=== PATIENT | female | born 1995 | race Caucasian/White ===

== ENCOUNTER 2017-01-08 21:12 | Emergency (ER) | payer OTHER ==
[2017-01-08 21:47] VITALS: RESP 18; TEMP 98.6
[2017-01-08] MEDS ORDERED: NORMAL SALINE 10 ML SYRINGE FLUSH IVP PRN (21:55)
[2017-01-08 22:16] LABS: BASOPHILS # (AUTO) 0.04 10*3/UL; BASOPHILS % (AUTO) 0.4 % (0-1); EOSINOPHILS # (AUTO) 0.13 10*3/UL; EOSINOPHILS % (AUTO) 1.4 % (0-8); HEMATOCRIT 41.4 % (37.0-47.0); HEMOGLOBIN 13.8 g/dL (12.0-16.0); LYMPHOCYTES # (AUTO) 2.91 10*3/uL; MEAN CORPUSCULAR HEMOGLOBIN 29.6 PG (27-31); MEAN CORPUSCULAR HGB CONC 33.3 g/dL (33-37); MEAN CORPUSCULAR VOLUME 88.8 FL (81-99); MEAN PLATELET VOLUME 9.1 FL (7.4-12.2); MONOCYTES # (AUTO) 0.68 10*3/UL (0.3-0.8); MONOCYTES % (AUTO) 7.4 % (5-15); NEUTROPHILS # (AUTO) 5.45 10*3/UL; NEUTROPHILS % (AUTO) 59.1 % (50-80); RED BLOOD COUNT 4.66 10^6/uL (4.20-5.40)
[2017-01-08 22:19] LABS: PLATELET MORPHOLOGY COMMENT NORMAL MORPHOLOGY (NORM); RBC MORPHOLOGY COMMENT NORMAL MORPHOLOGY (NORM); WBC MORPHOLOGY COMMENT NORMAL MORPHOLOGY (NORM)
[2017-01-08 22:26] LABS: BLOOD UREA NITROGEN 10 mg/dL (7-22); BUN/CREATININE RATIO 14.28 (6-20); CALCIUM 9.1 mg/dL (8.7-10.7); EST GLOMERULAR FILTRATION > 60 (>60 ml/min/1.73m(2)); SERUM ALBUMIN 4.9 g/dL (3.5-4.8)
[2017-01-08] MEDS ORDERED: AZITHROMYCIN 250 MG TABLET PO SCH (23:30)
--- NOTE | 2017-01-08 23:52 | PDOC ---
Upper Respiratory HPI - General Chief Complaint: Cough / URI Stated Complaint: COUGHING UP BLOOD X 1 WEEK Date Seen by Provider: 01/08/17 Time Seen by Provider: 21:45 Source: POSITIVE: Patient Exam Limitations: POSITIVE: No limitations Nurse's Notes Reviewed & Considered: Yes - History of Present Illness Initial Comments: The patient is a 21-year-old female. She states that for the past week she has had a cough with some possible hemoptysis. No chest pain. No known fevers. She smokes 2-3 cigarettes per day. Mild sore throat. No rashes or skin changes or any other symptoms. Timing: REPORTS: Constant Duration: <1 week (Approximately one week) Severity: Mild Quality: REPORTS: Other (No pain anywhere) Context: DENIES: Recent Foreign Travel, Insect Bite, Tick Bite, Multiple Pt's w / Same Sx, Recent Chemotherapy, Other Modifying Factors: improves with: Coughing Associated Symptoms: REPORTS: Sore Throat, Other (Possible hemoptysis). DENIES : Fever, Chills, Sweating, Earache, Runny Nose, Sinus Pain, Sinus Drainage, Hoarseness, Allergy, Hay Fever, Chest Pain, Cough, Bloody Cough, Productive Cough, Shortness of Breath, Hurts to Breathe, Headache Similar Symptoms Previously: No Recently seen/treated/hospitalized: No Any Prior Injuries Related to Current Complaint?: No - Patient Home Medications Home Medications: Home Medications Azithromycin [Zithromax] 500 mg PO DAILY #4 tab 01/08/17 - Patient Allergies Allergies/Adverse Reactions: Allergies Allergy/AdvReac Type Severity Reaction Status Date / Time coconut oil Allergy HIVES Verified 01/08/17 21:26 Past Medical History - heen HEENT History: Denies History Cardiovascular History: Denies History Respiratory History: Denies History Gastrointestinal History: Denies History Genitourinary History: Denies History Endocrine History: Hyperthyroidism, Other (please comment) Additional Endocrine History: TAKEN OFF MEDS AND REPORTED CLEAR Musculoskeletal History: Denies History Prosthesis or Implant: No Neurological History: Denies History Blood Disorders: Denies History Psychiatric History: Denies History History of Sexually Transmitted Diseases: No Female Reproductive History: Denies History Obstetrical History: Denies History Cancer History: Denies History In Past Year Been Physically Harmed or Verbally Threatened: No History of MDRO: No History of Other Communicable Diseases: No Tobacco Use: Current Every Day Smoker Alcohol Use: Rarely Substance Use Type: None Previous Surgical History: Yes Type / Date of Surgery: WISDOM TEETH, APPENDECTOMY Anesthesia Reactions: No Malignant Hyperthermia: No Significant Family History: No pertinent family hx, Heart disease, Cancer, COPD , Diabetes, Hypertension Additional Family History: Father's - COPD, Diabetes, Hypertension, Cancer. Mother's - Asthma, Empysema, Heart Murmur Past Medical History Reviewed: Reviewed - No Changes ROS - Limitations ROS Limitations: No Limitations Constitution: REPORTS: Denies Symptoms Cardiovascular: REPORTS: Denies Cardiac Symptoms Respiratory: REPORTS: Cough Productive (Possible hemoptysis). DENIES: Hurts To Breathe, Shortness Of Breath, Wheezing Neurological: REPORTS: Denies Neuro Symptoms Gastrointestinal: REPORTS: Denies GI Symptoms Endocrine: REPORTS: Denies Symptoms Musculoskeletal: REPORTS: Denies MS Symptoms Genitourinary: REPORTS: Denies Symptoms Eyes: REPORTS: Denies Symptoms ENT: REPORTS: Sore Throat (Mild). DENIES: Earache, Ear Discharge, Hearing Loss , Vertigo, Nose Pain, Nose Bleed, Congestion, Nasal Drainage, Sinus Problem, Trouble Swallowing, Tongue Swelling, Throat Swelling, Lip Swelling, Dental Pain Skin: REPORTS: Denies Skin Symptoms Lympathic: REPORTS: Denies Lympathic Symptoms Immunologic: POSITIVE: Denies Symptoms Psychiatric: POSITIVE: Denies Psych Symptoms Upper Respiratory/Fever Exam - General Appearance General Appearance: REPORTS: Alert, Cooperative, No Acute Distress, No Evidence of Trauma - HEENT HEENT: POSITIVE: Head Inspection Nml, Eyes Inspection Nml, Ears Inspection Nml, Nose Inspection Nml, Oral/Dental Inspect. Nml, PERRL, EOMI, Pharyngeal Erythema (Mild pharyngeal erythema) - Neck Neck: REPORTS: Normal Inspection, Supple - Respiratory Respiratory: REPORTS: No Respiratory Distress, Breath Sounds Normal, No Pleuritic Chest Pain, Speaks Full Sentences, No Pain on Inspiration - Abdomen Abdomen: Soft: (All Quadrants), Normal Bowel Sounds: (All Quadrants), Denies Tenderness: (All Quadrants), No Splenomegaly: (All Quadrants), No Hepatomegaly: (All Quadrants), No Guarding: (All Quadrants), No Rebound: (All Quadrants), No Palpable Pulse: (All Quadrants), No [place] Mass: (All Quadrants), No Distention: (All Quadrants), No Rigidity: (All Quadrants) - Cardiovascular Cardiovascular: REPORTS: Regular Rate and Rhythm, Heart Sounds Normal, Equal Pulses, Strong Pulses, No Murmur, No Gallop, No Friction Rub, No JVD Peripheral Pulses: Radial (R): 2+, Radial (L): 2+ - Skin Skin: REPORTS: Intact, Normal For Race, Warm, Dry, No Rash - Extremities Extremity: Non-Tender: (All Extremities), Normal ROM: (All Extremities), Normal Inspection: (All Extremities) - Neurological / Psychological Neurological: POSITIVE: Oriented X3, proofreader Normal As Tested, Motor Normal, Sensation Normal, 5, 6 Upper Resp/Fever Progress - Results Reviewed by me Xrays/CTs/US Reviewed by me: Yes Discussed with Radiologist: No Radiology Findings: Chest x-ray normal Lab Results Reviewed: Yes Lab Results:: Laboratory Results 01/08/17 Range/Units 22:14 WBC 9.22 (4.8-10.8) 10^3/uL RBC 4.66 (4.20-5.40) 10^6/uL Hgb 13.8 (12.0-16.0) g/dL Hct 41.4 (37.0-47.0) % MCV 88.8 (81-99) FL MCH 29.6 (27-31) PG MCHC 33.3 (33-37) g/dL RDW Std Deviation 42.3 (39-50) fL RDW Coeff of Marlene 13.2 (11.5-14.5) % Plt Count 300 (140-350) 10*3/uL MPV 9.1 (7.4-12.2) FL Immature Gran % (Auto) 0.1 (0-5) % Neut % (Auto) 59.1 (50-80) % Lymph % (Auto) 31.6 (10-50) % [place] % (Auto) 7.4 (5-15) % Eos % (Auto) 1.4 (0-8) % Baso % (Auto) 0.4 (0-1) % Immature Gran # (Auto) 0.01 10*3/UL Neut # (Auto) 5.45 10*3/UL Lymph # (Auto) 2.91 10*3/uL [place] # (Auto) 0.68 (0.3-0.8) 10*3/UL Eos # (Auto) 0.13 10*3/UL Baso # (Auto) 0.04 10*3/UL WBC Morphology Comment Normal morphology (NORM) Plt Morphology Comment Normal morphology (NORM) RBC Morph Comment Normal morphology (NORM) PT 10.6 (9.7-11.4) secs INR 1.03 (0.00-5.90) N/A APTT 28.0 (22.6-31.3) SECS D-Dimer 0.25 (0.00-0.59) mg/L Sodium 141 (135-145) meq/L Potassium 3.5 L (3.8-5.2) meq/L Chloride 107 (98-112) meq/L Carbon Dioxide 22 L (23-33) meq/L Anion Gap 12 (5-20) BUN 10 (7-22) mg/dL Creatinine 0.7 (0.50-1.20) mg/dL Estimated GFR > 60 (>60 ml/min/1.73m(2)) BUN/Creatinine Ratio 14.28 (6-20) Glucose 79 (78-110) mg/dL Calculated Osmolality 289.0 (267-292) mOsm/kg Calcium 9.1 (8.7-10.7) mg/dL Total Bilirubin 0.7 (0.3-1.2) mg/dL AST 24 (8-39) IU/L ALT 29 (9-52) IU/L Alkaline Phosphatase 53 (38-126) IU/L Total Protein 7.9 (6.1-8.0) g/dL Albumin 4.9 H (3.5-4.8) g/dL Globulin 3.0 (2.50-4.10) g/dL Albumin/Globulin Ratio 1.60 (1.3-2.0) mg/g Serum HCG, Qual Negative - Patient's Progress Pain Medication Addressed: POSITIVE: Not Applicable School/Work Release Addressed: POSITIVE: Not Applicable Re-Examine Time: 23:10 Re-Examine Comment: Patient remained asymptomatic throughout her stay in the emergency room; no cough. Status: POSITIVE: Unchanged, Re-Examined Air Movement: Good Antibiotics Given: Yes (Zithromax) Nebulizer Treatment Given:: No - Consult Counseled: POSITIVE: Patient, RE: Lab Results, RE: Radiology Results, RE: DX, RE : Need for F/U RX Given: Yes (Zithromax, 500 mg daily for 5 days) Patient Care Time - Estimated PCT Patient Care Time (In Minutes): 30 Vital Signs - Recent Vital Signs Vital Signs: Vital Signs (Last 8 hours) Temp Resp BP Pulse Ox 01/08/17 21:12 98.6 F 18 114/66 95 - VS Reviewed Vital Signs Reviewed: Yes Discharge Clinical Impression: Bronchitis, Hemoptysis Discharge Disposition: Discharged to Home Condition: Stable Prescriptions / Orders: Azithromycin [Zithromax] 500 mg PO DAILY #4 tab Patient Instructions Given at Discharge: Acute Bronchitis (ED), Hemoptysis (ED) Additional Instructions: I am not sure why you might be coughing up some blood. Your chest x-ray is normal. Your blood tests, including screening test for blood clots in the lung are normal. We'll try you on a course of Zithromax for acute bronchitis. Take one tablet daily for 5 days. Please stop smoking. Follow-up with your primary care provider in 5-6 days; you might need a CT scan of the chest for further evaluation. Return here anytime if condition worsens or as necessary. Follow Up With: ROLF RUSSELL [Primary Care Provider] - (Instructions as above. Follow-up with your primary care provider in 5-6 days. Return here anytime if condition worsens in any way.)
--- NOTE | 2017-01-10 11:14 | DI ---
PA /LATERAL CHEST X-RAY, 01/08/2017 8:56 PM : Clinical History: Hemoptysis. Cough. Previous Exam: None at this facility. There is no acute soft tissue or bony abnormality. Heart size is normal. Lungs are clear. Mediastinal structures are normal. There are no pulmonary nodules. Reading: Normal chest x-ray. There has been no interval change.
== END 2017-01-08 22:30 | disposition home or self-care (01) ==
LOC: ER 21:12
DX: J20.9 Acute bronchitis, unspecified (principal); R04.2 Hemoptysis
CPT/HCPCS: 71020; 80053; 84703; 85025; 85379; 85610; 85730; 87802; 99283

== ENCOUNTER 2017-03-13 12:33 | Emergency (ER) | payer OTHER ==
[2017-03-13 12:51] VITALS: RESP 16; TEMP 97
--- NOTE | 2017-03-13 13:03 | PDOC ---
Female Problem HPI - General Chief Complaint: Vag Complaint/Bleed, <20WK IUP Stated Complaint: vaginal bleeding, cramping Date Seen by Provider: 03/13/17 Time Seen by Provider: 12:58 Source: POSITIVE: Patient Exam Limitations: POSITIVE: No limitations Nurse's Notes Reviewed & Considered: Yes - History of Present Illness Initial Comments: This is a 21-year-old female who presents to the emergency department with a history of abrupt worsening of vaginal bleeding when she woke up this morning. She states that she's had a period for about the last 6 weeks that finally stopped last night, when she woke this morning, she was covered in blood from her groin to her knees. She did have some lower abdominal cramping associated with this bleeding, she has nausea but no vomiting. She is somewhat lightheaded. No vaginal discharge, no dysuria or urinary frequency. No fevers chills or body aches. She had Explanon implanted in July 2016. - Patient Home Medications Home Medications: Home Medications Etonogestrel [Nexplanon] 68 mg IMPLANT ASDIR 03/13/17 - Patient Allergies Allergies/Adverse Reactions: Allergies Allergy/AdvReac Type Severity Reaction Status Date / Time coconut oil Allergy HIVES Verified 03/13/17 12:37 Past Medical History - heen HEENT History: Denies History Cardiovascular History: Denies History Respiratory History: Denies History Gastrointestinal History: Denies History Genitourinary History: Denies History Endocrine History: Hyperthyroidism, Other (please comment) Additional Endocrine History: TAKEN OFF MEDS AND REPORTED CLEAR Musculoskeletal History: Denies History Prosthesis or Implant: No Neurological History: Denies History Blood Disorders: Denies History Psychiatric History: Denies History History of Sexually Transmitted Diseases: No Female Reproductive History: Denies History, Other (please comment) Additional Female Reproductive History: SAYS SHE HAS BEEN HAVING HER PERIOD FOR THE LAST 45 DAYS LMP: 02/05/17 Obstetrical History: Denies History : 1 Para: 1 Cancer History: Denies History In Past Year Been Physically Harmed or Verbally Threatened: No History of MDRO: No History of Other Communicable Diseases: No Tobacco Use: Current Every Day Smoker Alcohol Use: None Substance Use Type: None Previous Surgical History: Yes Type / Date of Surgery: WISDOM TEETH, APPENDECTOMY Anesthesia Reactions: No Malignant Hyperthermia: No Significant Family History: No pertinent family hx, Heart disease, Cancer, COPD , Diabetes, Hypertension Additional Family History: Father's - COPD, Diabetes, Hypertension, Cancer. Mother's - Asthma, Empysema, Heart Murmur Past Medical History Reviewed: Reviewed - No Changes ROS - Limitations ROS Limitations: No Limitations Constitution: DENIES: Chills, Fever Cardiovascular: DENIES: Chest Pain Respiratory: REPORTS: Denies Resp Symptoms Neurological: REPORTS: Dizziness Gastrointestinal: REPORTS: Abdominal Pain, Nausea. DENIES: Vomitting Musculoskeletal: DENIES: Muscle Aches Genitourinary: DENIES: Dysuria Female Genitourinary Exam - General Appearance General Appearance: POSITIVE: Alert, Cooperative, Moderate Distress - HEENT HEENT: POSITIVE: PERRL. NEGATIVE: Scleral Icterus - Respiratory Respiratory: POSITIVE: No Respiratory Distress, Breath Sounds Normal. NEGATIVE : Wheezes, Rales, Rhonchi - Cardiovascular Cardiovascular: POSITIVE: Regular Rate and Rhythm, Heart Sounds Normal. NEGATIVE: Murmur - Abdomen Additional Abdominal Details: Abdomen is soft, nondistended, she has moderate superpubic tenderness palpation , but no guarding or rebound. Active bowel sounds all 4 quadrants. No organomegaly. - Back Back: POSITIVE: CVA Tenderness (L) - Genital / Rectal Pelvic Exam: POSITIVE: External Exam Normal, Vaginal Bleeding, Blood In Vaginal Vault, Cervical Motion Tender (Mild), Adnexal Tenderness (Bilateral), Mild. NEGATIVE: Clots in vaginal Vault, Cervicitis, Tissue Present in Cervix, Adnexal Mass, Enlarged Uterus - Skin Skin: POSITIVE: Warm, Dry, No Rash - Neurological / Psychological Neurological: POSITIVE: Affect Apporpriate, Oriented X3 Female Genitourinary Progress - Results Reviewed by me Lab Results Reviewed: Yes Lab Results:: Laboratory Results 03/13/17 03/13/17 Range/Units 13:04 13:11 WBC 6.63 (4.8-10.8) 10^3/uL RBC 4.46 (4.20-5.40) 10^6/uL Hgb 13.4 (12.0-16.0) g/dL Hct 39.9 (37.0-47.0) % MCV 89.5 (81-99) FL MCH 30.0 (27-31) PG MCHC 33.6 (33-37) g/dL RDW Std Deviation 41.9 (39-50) fL RDW Coeff of Marlene 12.9 (11.5-14.5) % Plt Count 276 (140-350) 10*3/uL MPV 9.8 (7.4-12.2) FL Immature Gran % (Auto) 0.2 (0-5) % Neut % (Auto) 59.9 (50-80) % Lymph % (Auto) 30.9 (10-50) % [place] % (Auto) 6.3 (5-15) % Eos % (Auto) 1.2 (0-8) % Baso % (Auto) 1.5 H (0-1) % Immature Gran # (Auto) 0.01 10*3/UL Neut # (Auto) 3.97 10*3/UL Lymph # (Auto) 2.05 10*3/uL [place] # (Auto) 0.42 (0.3-0.8) 10*3/UL Eos # (Auto) 0.08 10*3/UL Baso # (Auto) 0.10 10*3/UL WBC Morphology Comment Normal morphology (NORM) Plt Morphology Comment Normal morphology (NORM) RBC Morph Comment Normal morphology (NORM) Sodium 141 (135-145) meq/L Potassium 4.4 (3.8-5.2) meq/L Chloride 108 (98-112) meq/L Carbon Dioxide 24 (23-33) meq/L Anion Gap 9 (5-20) BUN 11 (7-22) mg/dL Creatinine 0.7 (0.50-1.20) mg/dL Estimated GFR > 60 (>60 ml/min/1.73m(2)) BUN/Creatinine Ratio 15.71 (6-20) Glucose 84 (78-110) mg/dL Calculated Osmolality 289.0 (267-292) mOsm/kg Calcium 9.5 (8.7-10.7) mg/dL Serum HCG, Qual Negative Ur Collection Type Clean catch urine Urine Color Yellow Urine Clarity Slightly cloudy (CLEAR) Urine pH 7.5 (5.0-8.5) Ur Specific [place] 1.020 (1.005-1.030) Urine Protein Negative (NEG) mg/dl Urine Glucose (UA) Negative (NEG) mg/dL Urine Ketones Negative (NEG) Urine Occult Blood Moderate H (NEG) Urine Nitrate Negative (NEG) Urine Bilirubin Negative (NEG) Urine Urobilinogen 0.2 (0.2) EU/dL Ur Leukocyte Esterase Negative (NEG) Urine RBC 4-8 (NONE) /hpf Urine WBC 1-3 (NONE) Ur Squamous Epith Cells Rare (NONE) Ur Renal Epithelial Cell None (NONE) Urine Crystals None Urine Bacteria Moderate (NONE) Urine Casts None (NONE) Urine Mucus None (NONE) Urine Trichomonas None (NONE) Urine Yeast None (NONE) Ur Culture Indicated? Culture set - Patient's Progress Pain Medication Addressed: POSITIVE: Yes Re-Examine Time: 14:09 Re-Examine Comment: Pelvic exam done, lab results reviewed. Ultrasound will be ordered. Re-Examine Time:: 16:11 Re-Examine Comment: Ultrasound results reviewed with the patient. GC and chlamydia were negative. Patient states the pain is improved and she ready to go home. Status: POSITIVE: Improved MDM / ED Course: Emergency room course: After initial evaluation, an IV was started. Blood was drawn. She is given a 1 L normal saline bolus as well as Zofran for nausea and fentanyl for pain. Once the lab results were returned and reviewed, they were discussed with the patient. Her pain was improved. Ultrasound was unremarkable. Diagnosis seems to be abnormal uterine bleeding, currently improving. She'll be discharged home. Return to the emergency department if bleeding or pain worse. Patient Care Time - Estimated PCT Patient Care Time (In Minutes): 20 Vital Signs - Recent Vital Signs Vital Signs: Vital Signs (Last 8 hours) Temp Pulse Resp BP Pulse Ox 03/13/17 12:35 97 F 79 16 119/78 96 Discharge Clinical Impression: Dysfunctional uterine bleeding Discharge Disposition: Discharged to Home Condition: Stable Patient Instructions Given at Discharge: Dysfunctional Uterine Bleeding (ED)
[2017-03-13] MEDS ORDERED: ONDANSETRON 4 MG/2 ML VIAL IVP ONE (13:04)
[2017-03-13] MEDS ORDERED: Sodium Chloride 0.9% 1,000 ML PRIMARY IV ONE (13:04)
[2017-03-13] MEDS ORDERED: NORMAL SALINE 10 ML SYRINGE FLUSH IVP PRN (13:04)
[2017-03-13] MEDS: fentaNYL Inj 100 MCG/2 ML VIAL IVP PRN ×2 (13:14→14:24)
[2017-03-13 13:24] LABS: BASOPHILS % (AUTO) 1.5 % (0-1); EOSINOPHILS # (AUTO) 0.08 10*3/UL; EOSINOPHILS % (AUTO) 1.2 % (0-8); HEMATOCRIT 39.9 % (37.0-47.0); HEMOGLOBIN 13.4 g/dL (12.0-16.0); LYMPHOCYTES # (AUTO) 2.05 10*3/uL; MEAN CORPUSCULAR HGB CONC 33.6 g/dL (33-37); MEAN CORPUSCULAR VOLUME 89.5 FL (81-99); MEAN PLATELET VOLUME 9.8 FL (7.4-12.2); MONOCYTES # (AUTO) 0.42 10*3/UL (0.3-0.8); MONOCYTES % (AUTO) 6.3 % (5-15); NEUTROPHILS # (AUTO) 3.97 10*3/UL; NEUTROPHILS % (AUTO) 59.9 % (50-80); RED BLOOD COUNT 4.46 10^6/uL (4.20-5.40)
[2017-03-13 13:33] LABS: BLOOD UREA NITROGEN 11 mg/dL (7-22); BUN/CREATININE RATIO 15.71 (6-20); CALCIUM 9.5 mg/dL (8.7-10.7); EST GLOMERULAR FILTRATION > 60 (>60 ml/min/1.73m(2)); PLATELET MORPHOLOGY COMMENT NORMAL MORPHOLOGY (NORM); RBC MORPHOLOGY COMMENT NORMAL MORPHOLOGY (NORM); WBC MORPHOLOGY COMMENT NORMAL MORPHOLOGY (NORM)
[2017-03-13 14:04] LABS: BILIRUBIN,URINE NEGATIVE (NEG); CLARITY,URINE Slightly Cloudy (CLEAR); COLOR,URINE YELLOW; GLUCOSE, URINE (UA) NEGATIVE (NEG); NITRATE,URINE NEGATIVE (NEG); OCCULT BLOOD,URINE MODERATE (NEG); PH,URINE 7.5 (5.0-8.5); PROTEIN,URINE NEGATIVE (NEG); UROBILINOGEN,URINE 0.2 EU/dL (0.2)
[2017-03-13 14:17] LABS: BACTERIA,URINE MODERATE; SQUAMOUS EPITHELIAL CELL,UR RARE; URINE SAMPLE TYPE CLEAN CATCH URINE
--- NOTE | 2017-03-13 15:40 | DI ---
HISTORY: Vaginal bleeding. PREVIOUS EXAM: None available. TECHNIQUE: Multiple transvaginal grayscale and color Doppler sonographic images were obtained throug h the pelvis. FINDINGS: Ultrasound images demonstrate a normal-appearing uterus measuring 7.6 x 4.5 x 4.0 cm with a normal endometrial stripe. The ovaries are normal bilaterally. There are multiple bilateral maturing follicles. The right ovary measures 2.9 x 2.1 x 1.5 cm. The left ovary measures 3.2 x 1.9 x 1.8 cm. There is normal Doppler flow. Endometrial stripe measures 3 mm. IMPRESSION: 1. Normal pelvic ultrasound. NOTE: The interpreting Radiologist was not present at the time of ultrasound interrogation.
== END 2017-03-13 16:30 | disposition home or self-care (01) ==
LOC: ER 12:33
DX: N93.8 Other specified abnormal uterine and vaginal bleeding (principal); R42 Dizziness and giddiness; R11.0 Nausea
CPT/HCPCS: 76830; 80048; 81001; 81003; 84703; 85025; 87088; 87210; 87491; 87591; 96374; 96375; 99283 ×2; J2405; J3010; J7030

== ENCOUNTER 2017-03-18 17:54 | Emergency (ER) | payer OTHER ==
[2017-03-18] MEDS ORDERED: Sodium Chloride 0.9% 1,000 ML PRIMARY IV ONE (17:59)
[2017-03-18] MEDS ORDERED: KETOROLAC 15 MG/1 ML VIAL IVP ONE (18:03)
[2017-03-18] MEDS ORDERED: ONDANSETRON 4 MG/2 ML VIAL IVP ONE (18:06)
--- NOTE | 2017-03-18 18:27 | PDOC ---
Abdomen/Flank HPI - General Chief Complaint: Abdomen Pain Stated Complaint: ABDOMINAL PAIN Date Seen by Provider: 03/18/17 Time Seen by Provider: 18:26 Source: POSITIVE: Patient Exam Limitations: POSITIVE: No limitations Nurse's Notes Reviewed & Considered: Yes - History of Present Illness Initial Comments: Patient comes in today with chief complaint of pelvic pain. Patient developed abdominal pain today that was in her lower quadrants left greater than right. She denies any fever chills or sweats, nausea vomiting or diarrhea, no hematuria or dysuria. Body Location Affected: REPORTS: Abdomen Timing: REPORTS: Abrupt Duration: 1-3 hours Severity: Moderate Quality: REPORTS: Cramping, "Pain", Stabbing Abdominal Pain Onset Location: REPORTS: LLQ Abdominal Pain Radiation: REPORTS: RLQ Context: REPORTS: None Modifying Factors: improves with: Nothing Similar Symptoms Previously: No Recent Care Received: REPORTS: Denies Any Prior Injuries Related to Current Complaint?: No - Patient Home Medications Home Medications: Home Medications NK [No Home Medications Reported] 03/18/17 - Patient Allergies Allergies/Adverse Reactions: Allergies Allergy/AdvReac Type Severity Reaction Status Date / Time coconut oil Allergy HIVES Verified 03/18/17 17:56 Past Medical History - heen HEENT History: Denies History Cardiovascular History: Denies History Respiratory History: Denies History Gastrointestinal History: Denies History Genitourinary History: Denies History Endocrine History: Hyperthyroidism, Other (please comment) Additional Endocrine History: TAKEN OFF MEDS AND REPORTED CLEAR Musculoskeletal History: Denies History Prosthesis or Implant: No Neurological History: Denies History Blood Disorders: Denies History Psychiatric History: Denies History History of Sexually Transmitted Diseases: No Cancer History: Denies History History of MDRO: No History of Other Communicable Diseases: No Alcohol Use: None Substance Use Type: None Previous Surgical History: Yes Type / Date of Surgery: WISDOM TEETH, APPENDECTOMY Anesthesia Reactions: No Malignant Hyperthermia: No Significant Family History: No pertinent family hx, Heart disease, Cancer, COPD , Diabetes, Hypertension Additional Family History: Father's - COPD, Diabetes, Hypertension, Cancer. Mother's - Asthma, Empysema, Heart Murmur ROS Constitution: REPORTS: Denies Symptoms Cardiovascular: REPORTS: Denies Cardiac Symptoms Respiratory: REPORTS: Denies Resp Symptoms Neurological: REPORTS: Denies Neuro Symptoms Gastrointestinal: REPORTS: Abdominal Pain Endocrine: REPORTS: Denies Symptoms Musculoskeletal: REPORTS: Denies MS Symptoms Genitourinary: REPORTS: Denies Symptoms Eyes: REPORTS: Denies Symptoms ENT: REPORTS: Denies Symptoms Skin: REPORTS: Denies Skin Symptoms Lympathic: REPORTS: Denies Lympathic Symptoms Immunologic: POSITIVE: Denies Symptoms Psychiatric: POSITIVE: Denies Psych Symptoms Abdominal/Flank Pain PE - General Appearance General Appearance: POSITIVE: Alert, Cooperative, No Acute Distress, No Evidence of Trauma - HEENT HEENT: POSITIVE: Head Inspection Nml, Eyes Inspection Nml, Ears Inspection Nml, Nose Inspection Nml, Oral/Dental Inspect. Nml, Pharynx Inspect. Nml, PERRL, EOMI - Neck Neck: POSITIVE: Normal Inspection, No Apparent Injury - Respiratory Respiratory: POSITIVE: No Respiratory Distress, Breath Sounds Normal, Chest Non- Tender - Cardiovascular Cardiovascular: POSITIVE: Regular Rate and Rhythm, Heart Sounds Normal, Strong Pulses Peripheral Pulses: Radial (R): 3+ - Chest Chest: POSITIVE: Non Tender - Abdomen Abdomen: Soft: (All Quadrants), Normal Bowel Sounds: (All Quadrants), No Splenomegaly: (All Quadrants), No Hepatomegaly: (All Quadrants), No Guarding: ( All Quadrants), No Rebound: (All Quadrants), No Palpable Pulse: (All Quadrants) , No Palpabale Mass: (All Quadrants), No Distention: (All Quadrants), No Rigidity: (All Quadrants), Tenderness Noted: (LLQ) - Back Back: POSITIVE: Normal Inspection - Skin Skin: POSITIVE: Intact, Normal For Race, Warm, Dry, No Rash - Extremities Extremity: Non-Tender: (All Extremities), Normal ROM: (All Extremities), Normal Inspection: (All Extremities), Pelvis Stable: (All Extremities) - Neurological Neurological: POSITIVE: Oriented X3, hr generalist Normal As Tested, Motor Normal, Sensation Normal, 5, 6 Abdomen Progress - Results Reviewed by me Xrays/CTs/US Reviewed by me: Yes Discussed with Radiologist: Yes Lab Results Reviewed: Yes Lab Results:: Laboratory Results 03/18/17 03/18/17 03/18/17 Range/Units 18:00 18:10 18:30 WBC 6.31 (4.8-10.8) 10^3/uL RBC 4.36 (4.20-5.40) 10^6/uL Hgb 13.1 (12.0-16.0) g/dL Hct 39.2 (37.0-47.0) % MCV 89.9 (81-99) FL MCH 30.0 (27-31) PG MCHC 33.4 (33-37) g/dL RDW Std Deviation 41.4 (39-50) fL RDW Coeff of Marlene 12.8 (11.5-14.5) % Plt Count 309 (140-350) 10*3/uL MPV 10.1 (7.4-12.2) FL Immature Gran % (Auto) 0.2 (0-5) % Neut % (Auto) 49.7 L (50-80) % Lymph % (Auto) 38.4 (10-50) % [place]ike % (Auto) 7.9 (5-15) % Eos % (Auto) 2.5 (0-8) % Baso % (Auto) 1.3 H (0-1) % Immature Gran # (Auto) 0.01 10*3/UL Neut # (Auto) 3.14 10*3/UL Lymph # (Auto) 2.42 10*3/uL Pike # (Auto) 0.50 (0.3-0.8) 10*3/UL Eos # (Auto) 0.16 10*3/UL Baso # (Auto) 0.08 10*3/UL WBC Morphology Comment Normal morphology (NORM) Plt Morphology Comment Normal morphology (NORM) RBC Morph Comment Normal morphology (NORM) Sodium 140 (135-145) meq/L Potassium 4.0 (3.8-5.2) meq/L Chloride 105 (98-112) meq/L Carbon Dioxide 24 (23-33) meq/L Anion Gap 11 (5-20) BUN 12 (7-22) mg/dL Creatinine 0.7 (0.50-1.20) mg/dL Estimated GFR > 60 (>60 ml/min/1.73m(2)) BUN/Creatinine Ratio 17.14 (6-20) Glucose 80 (78-110) mg/dL Calculated Osmolality 288.0 (267-292) mOsm/kg Calcium 9.6 (8.7-10.7) mg/dL Magnesium 2.1 (1.6-2.4) mg/dL Total Bilirubin 0.5 (0.3-1.2) mg/dL AST 22 (8-39) IU/L ALT 27 (9-52) IU/L Alkaline Phosphatase 43 (38-126) IU/L Total Protein 7.3 (6.1-8.0) g/dL Albumin 4.6 (3.5-4.8) g/dL Globulin 2.7 (2.50-4.10) g/dL Albumin/Globulin Ratio 1.70 (1.3-2.0) mg/g Ur Collection Type Voided specimen Urine Color Yellow Urine Clarity Clear (CLEAR) Urine pH 5.5 (5.0-8.5) Ur Specific [place] 1.015 (1.005-1.030) U Specif Grav (Refrac) 1.015 Urine Protein Negative (NEG) mg/dl Urine Glucose (UA) Negative (NEG) mg/dL Urine Ketones Negative (NEG) Urine Occult Blood Negative (NEG) Urine Nitrate Negative (NEG) Urine Bilirubin Negative (NEG) Urine Urobilinogen 0.2 (0.2) EU/dL Ur Leukocyte Esterase Trace (NEG) Urine RBC None (NONE) /hpf Urine WBC 0-2 (NONE) Ur Squamous Epith Cells Moderate (NONE) Ur Renal Epithelial Cell None (NONE) Urine Crystals None Urine Bacteria None (NONE) Urine Casts None (NONE) Urine Mucus None (NONE) Urine Trichomonas None (NONE) Urine Yeast None (NONE) Ur Culture Indicated? Culture not set Urine HCG, Qual Negative - Patient's Progress Pain Medication Addressed: POSITIVE: Yes Status: POSITIVE: Improved MDM / ED Course: Patient was evaluated, he started, blood drawn and sent to the lab for studies, radiographic examinations were obtained. Findings: CBC is within normal limits, comprehensive metabolic panel is normal, urinalysis is negative. Ultrasound shows right ovary to be normal left ovary is not visualized, no free fluid is appreciated. Assessment: Abdominal pain. Plan: Discharge home, Tylenol and ibuprofen as needed, follow-up with primary care physician or return to the emergency room for re-evaluation tomorrow. - Consult Counseled: POSITIVE: Patient, Family, RE: Lab Results, RE: Radiology Results, RE : DX, RE: Need for F/U Patient Care Time - Estimated PCT Patient Care Time (In Minutes): 30 Vital Signs - Recent Vital Signs Vital Signs: Vital Signs (Last 8 hours) Temp Pulse Resp BP Pulse Ox 03/18/17 17:55 97.6 F 75 18 111/58 97 Discharge Clinical Impression: Pain in the abdomen Discharge Disposition: Discharged to Home Condition: Stable Patient Instructions Given at Discharge: Urinary Tract Infection in Women (ED)
[2017-03-18 18:40] LABS: BASOPHILS # (AUTO) 0.08 10*3/UL; BASOPHILS % (AUTO) 1.3 % (0-1); EOSINOPHILS # (AUTO) 0.16 10*3/UL; EOSINOPHILS % (AUTO) 2.5 % (0-8); HEMATOCRIT 39.2 % (37.0-47.0); HEMOGLOBIN 13.1 g/dL (12.0-16.0); LYMPHOCYTES # (AUTO) 2.42 10*3/uL; MEAN CORPUSCULAR HGB CONC 33.4 g/dL (33-37); MEAN CORPUSCULAR VOLUME 89.9 FL (81-99); MEAN PLATELET VOLUME 10.1 FL (7.4-12.2); MONOCYTES % (AUTO) 7.9 % (5-15); NEUTROPHILS # (AUTO) 3.14 10*3/UL; NEUTROPHILS % (AUTO) 49.7 % (50-80); RED BLOOD COUNT 4.36 10^6/uL (4.20-5.40)
[2017-03-18 18:41] LABS: BILIRUBIN,URINE NEGATIVE (NEG); CLARITY,URINE CLEAR (CLEAR); COLOR,URINE YELLOW; GLUCOSE, URINE (UA) NEGATIVE (NEG); NITRATE,URINE NEGATIVE (NEG); OCCULT BLOOD,URINE NEGATIVE (NEG); PH,URINE 5.5 (5.0-8.5); PROTEIN,URINE NEGATIVE (NEG); UROBILINOGEN,URINE 0.2 EU/dL (0.2)
[2017-03-18 18:42] LABS: PLATELET MORPHOLOGY COMMENT NORMAL MORPHOLOGY (NORM); RBC MORPHOLOGY COMMENT NORMAL MORPHOLOGY (NORM); WBC MORPHOLOGY COMMENT NORMAL MORPHOLOGY (NORM)
[2017-03-18 18:44] LABS: URINE SPECIFIC GRAVITY - MAN 1.015
[2017-03-18 18:48] LABS: SQUAMOUS EPITHELIAL CELL,UR MODERATE; URINE SAMPLE TYPE VOIDED SPECIMEN; WBC,URINE 0-2
[2017-03-18 18:49] LABS: BLOOD UREA NITROGEN 12 mg/dL (7-22); BUN/CREATININE RATIO 17.14 (6-20); CALCIUM 9.6 mg/dL (8.7-10.7); EST GLOMERULAR FILTRATION > 60 (>60 ml/min/1.73m(2)); MAGNESIUM 2.1 mg/dL (1.6-2.4); SERUM ALBUMIN 4.6 g/dL (3.5-4.8)
[2017-03-18 20:31] VITALS: RESP 18; TEMP 97.6
--- NOTE | 2017-03-18 21:15 | DI ---
US PELVIC COMPLETE (NON OB),03/18/2017 6:26 PM: Clinical History: Right lower quadrant pain Previous Exam: None at this facility. Findings: Multiple grayscale and color Doppler sonographic images are obtained through the pelvis transabdomina lly, and demonstrate a normal-appearing uterus measuring 7.5 x 5.4 x 4.5 cm with an endometrial strip e measuring 3 mm. The right ovary is normal measuring 3.4 x 2.4 x 1.5 cm. The left ovary is not visualized. Impression: Normal pelvic ultrasound. Left ovary not visible on this exam.
== END 2017-03-18 22:00 | disposition home or self-care (01) ==
LOC: ER 17:54
DX: R10.31 Right lower quadrant pain (principal); R10.32 Left lower quadrant pain; R10.2 Pelvic and perineal pain
CPT/HCPCS: 76856; 80053; 81001; 81003; 83735; 84703; 85025; 96361; 96374; 96375; 99283 ×2; J1885; J2405; J7030